=== PATIENT | male | born 1965 | race Caucasian/White ===

== ENCOUNTER 2023-02-14 01:32 | Outpatient (REF) | payer OTHER, SELFPAY ==
[2023-02-14 10:13] LABS: Basophils Absolute Auto 0.1 10^3/uL (0.0-0.1); Basophils Percent Auto 1.1 % (0.2-2.0); Eosinophils Absolute Auto 0.5 10^3/uL (0.0-0.7); Eosinophils Percent Auto 5.3 % (0.9-7.0); Hematocrit 39.9 % (42.0-54.0); Hemoglobin 13.1 g/dL (14.0-18.0); Immature Granulocytes Abs Auto 0.06 10^3/uL (0.00-0.03); Immature Granulocytes Pct Auto 0.6 % (0.0-0.5); Lymphocytes Absolute Auto 2.7 10^3/uL (1.2-3.8); Lymphocytes Percent Auto 28.6 % (20.5-60.0); Mean Corpuscular HGB Conc 32.8 g/dL (29.9-35.2); Mean Corpuscular Volume 88.3 fL (80.0-94.0); Mean Platelet Volume 11.4 fL (9.5-13.5); Monocytes Absolute Auto 0.5 10^3/uL (0.3-0.8); Monocytes Percent Auto 5.6 % (1.7-12.0); Neutrophils Absolute Auto 5.5 10^3/uL (1.4-6.5); Neutrophils Percent Auto 58.8 % (43.0-75.0); Platelet Count 222 10^3/uL (150-450); Red Blood Count 4.52 10^6/uL (4.70-6.10); Red Cell Distribution Width 13.9 % (11.0-15.0); White Blood Count 9.3 10^3/uL (4.0-11.0)
[2023-02-14 10:58] LABS: Anion Gap 14.1; Calcium 9.3 mg/dL (8.5-10.1); Carbon Dioxide 29.6 mmol/L (21.0-32.0); Chloride 100 mmol/L (98-107); Estimated GFR (African America >60 (>=60); Estimated GFR (Non-African Ame >60 (>=60); Glucose 239 mg/dL (74-106); Potassium 4.7 mmol/L (3.5-5.1); Sodium 139 mmol/L (136-145)
== END 2023-02-14 01:33 | disposition home or self-care (01) ==
LOC: LAB 01:32
PROVIDERS: PCP Family Medicine; Visit Provider Family Medicine
DX: Z01.812 Encounter for preprocedural laboratory examination (principal); I10 Essential (primary) hypertension; E11.9 Type 2 diabetes mellitus without complications; I48.91 Unspecified atrial fibrillation
CPT/HCPCS: 36415; 80048; 85025

== ENCOUNTER 2023-05-27 12:01 | Emergency (ER) | payer OTHER, MEDICAID, SELFPAY ==
[2023-05-27 12:08] VITALS: BP 122/77; PULSE 79; RESP 18; TEMP 36.5; O2SAT 94; BMI 37.3
--- NOTE | 2023-05-27 12:22 | ED.EAR1 ---
HPI - Ear Problem General Chief complaint: Ear Stated complaint: RIGHT EAR PAIN Time Seen by Provider: 05/27/23 12:22 Source: patient Mode of arrival: walk-in Limitations: no limitations History of Present Illness HPI Narrative: patient's here with aching in his right ear. He says he has some decreased hearing in that ear as well as his left ear. He says he saw an electric blanket packer in [place] last year and he had hearing loss present things as getting worse. He does not have any other [place] symptoms cough cold congestion or sore throat. No history of trauma. He is edentulous and gums his food no other complaints today. Related Data Allergies Allergy/AdvReac Type Severity Reaction Status Date / Time amoxicillin Allergy Mild Verified 05/27/23 12:07 penicillin G Allergy Mild Verified 05/27/23 12:07 PFS PFSH Social History Smoking status: Former smoker Exam Narrative Exam Narrative: awake alert normal vital signs appears in no discomfort whatsoever. Problem focused examination as noted below . Left tympanic membrane was well visualized there is tiny amount of wax in the canal that's asymptomatic. He has no tenderness over the left temporomandibular joint. Right ear shows completely normal eardrum with no erythema bulging or bullae. Tiny amount of wax in the external canal. He does have some tenderness palpation over the left she's been the right temporomandibular joint. Does not have a tenderness over the mastoid area. The external canal appears completely normal. His oral cavity is unremarkable except he has no teeth at all. His findings are consistent with right temporomandibular joint and chronic hearing loss. He is advised follow-up with audiology to further evaluate that and to be placed on oral NSAIDs Constitutional Vital Signs, click to edit/add: Last Vital Signs Temp 97.7 F 05/27/23 12:08 Pulse 79 05/27/23 12:08 Resp 18 05/27/23 12:08 BP 122/77 05/27/23 12:08 Pulse Ox 94 L 05/27/23 12:08 O2 Del Method Room Air 05/27/23 12:08 Course Vital Signs Vital signs: Vital Signs Temperature 97.7 F 05/27/23 12:08 Pulse Rate 79 05/27/23 12:08 Respiratory Rate 18 05/27/23 12:08 Blood Pressure 122/77 05/27/23 12:08 Pulse Oximetry 94 L 05/27/23 12:08 Oxygen Delivery Method Room Air 05/27/23 12:08 Temperature 97.7 F 05/27/23 12:08 Pulse Rate 79 05/27/23 12:08 Respiratory Rate 18 05/27/23 12:08 Blood Pressure 122/77 05/27/23 12:08 Pulse Oximetry 94 L 05/27/23 12:08 Oxygen Delivery Method Room Air 05/27/23 12:08 Discharge Plan Discharge Chief Complaint: Ear Clinical Impression: Right-sided temporomandibular joint pain-dysfunction syndrome Patient Disposition: Home, Self-Care Time of Disposition Decision: 12:24 Additional Instructions: may try [id number] NSAIDs or Anaprox. Follow-up with audiology in [place] to really evaluate your hearing loss Stand Alone Forms: Portal Instructions Referrals: KENDAL JONES [Primary Care Provider] - 1 week
--- NOTE | 2023-05-27 12:38 | PC.NURSE ---
Right ear irrigated with return of small amount of yellow wax
== END 2023-05-27 12:41 | disposition home or self-care (01) ==
PROVIDERS: Emergency Provider Emergency Medicine Emergency Medical Services; PCP Family Medicine
DX: M26.601 Right temporomandibular joint disorder, unspecified (principal); Z87.891 Personal history of nicotine dependence
CPT/HCPCS: 99281

== ENCOUNTER 2023-07-05 18:32 | Emergency (ER) | payer OTHER, MEDICAID, SELFPAY ==
[2023-07-05 18:35] VITALS: BP 130/82; PULSE 89; RESP 18; TEMP 36.6; O2SAT 95; BMI 37.5
--- NOTE | 2023-07-05 18:40 | ED_ITS ---
HPI - Ear Problem General Chief complaint: Ear Time Seen by Provider: 07/05/23 18:36 Source: patient Mode of arrival: ambulance Limitations: no limitations History of Present Illness HPI Narrative: 58-year-old male presents for left ear feeling plugged. He recently had his right ear plugged and then it was flushed out. Major fever or so throat and he doesn't have symptoms in the right ear. This started within the last day. Related Data Home Medications Medication Instructions Recorded Confirmed albuterol sulfate 90 mcg/actuation 2 inh inhalation Q6H PRN shortness 05/27/23 07/05/23 aerosol inhaler of breath or wheezing atorvastatin 20 mg tablet 20 mg PO DAILY 05/27/23 07/05/23 furosemide 40 mg tablet 40 mg PO BID 05/27/23 07/05/23 insulin aspart U-100 100 unit/mL 80 unit subcut BID 05/27/23 07/05/23 (3 mL) subcutaneous pen (Novolog FlexPen U-100 Insulin aspart) lisinopril 2.5 mg tablet 2.5 mg PO DAILY 05/27/23 07/05/23 metformin 500 mg tablet 500 mg PO BID 05/27/23 07/05/23 oxycodone-acetaminophen 5 mg-325 1 tab PO Q6H PRN pain 05/27/23 07/05/23 mg tablet rivaroxaban 20 mg tablet (Xarelto) 20 mg PO DAILY 05/27/23 07/05/23 sotalol 160 mg tablet 160 mg PO BID 05/27/23 07/05/23 docusate sodium 100 mg capsule mg PO 07/05/23 insulin glargine 100 unit/mL (3 unit subcut BID 07/05/23 mL) subcutaneous pen (Lantus Solostar U-100 Insulin) polyethylene glycol 3350 17 17 g PO DAILY 07/05/23 07/05/23 gram/dose oral powder tamsulosin 0.4 mg capsule 0.4 mg PO Q24H 07/05/23 07/05/23 tramadol 50 mg tablet mg 07/05/23 Allergies Allergy/AdvReac Type Severity Reaction Status Date / Time amoxicillin Allergy Mild Verified 05/27/23 12:07 penicillin G Allergy Mild Verified 05/27/23 12:07 Review of Systems ROS Narrative A ten point review of systems is negative except as noted above. PFSH PFSH Medical History (Updated 07/05/23 @ 19:01 by Farhan Hernandez MD) Amputation of finger, left ?S68.119A - Complete traumatic metacarpophalangeal amputation of unspecified finger, initial encounter (ICD-10) Atrial flutter ?I48.92 - Unspecified atrial flutter (ICD-10) Cervicalgia ?M54.2 - Cervicalgia (ICD-10) Cognitive communication deficit ?R41.841 - Cognitive communication deficit (ICD-10) Congestive heart failure ?I50.9 - Heart failure, unspecified (ICD-10) Diabetes ?E11.9 - Type 2 diabetes mellitus without complications (ICD-10) GERD (gastroesophageal reflux disease) ?K21.9 - Gastro-esophageal reflux disease without esophagitis (ICD-10) Hearing loss ?H91.90 - Unspecified hearing loss, unspecified ear (ICD-10) High cholesterol ?E78.00 - Pure hypercholesterolemia, unspecified (ICD-10) Hypertension ?I10 - Essential (primary) hypertension (ICD-10) Kidney failure ?N19 - Unspecified kidney failure (ICD-10) Nicotine dependence ?F17.200 - Nicotine dependence, unspecified, uncomplicated (ICD-10) Obesity ?E66.9 - Obesity, unspecified (ICD-10) Obstructive sleep apnea ?G47.33 - Obstructive sleep apnea (adult) (pediatric) (ICD-10) Osteomyelitis ?M86.9 - Osteomyelitis, unspecified (ICD-10) PVD (peripheral vascular disease) ?I73.9 - Peripheral vascular disease, unspecified (ICD-10) Spinal stenosis ?M48.00 - Spinal stenosis, site unspecified (ICD-10) TIA (transient ischemic attack) ?G45.9 - Transient cerebral ischemic attack, unspecified (ICD-10) Venous thromboembolism ?I82.90 - Acute embolism and thrombosis of unspecified vein (ICD-10) Social History Smoking status: Former smoker Exam Narrative Exam Narrative: Nurses note and vital signs reviewed and patient is not hypoxic. General: The patient appears well and in no apparent distress. Patient is resting comfortably on cart. Skin: Warm, dry, no pallor noted. There is no rash noted. Head: Normocephalic, atraumatic Eye: Normal conjunctiva, no drainage Ears, Nose, Mouth, and Throat: oral mucosa is moist. right tympanic membrane is normal in appearance as is the external canal. The left is obscured by large amount of cerumen. Cardiovascular: Regular Rate and Rhythm Respiratory: Patient is in no distress, no accessory muscle use, lungs are clear to auscultation, no wheezing, rales or rhonchi Back: non-tender GI: nontender Musculoskeletal: The patient has no evidence of calf tenderness, no pitting edema, symmetrical pulses noted bilaterally Neurological: $ Psychiatric: Cooperative Constitutional Vital Signs, click to edit/add: Last Vital Signs Temp 97.9 F 07/05/23 18:35 Pulse 89 07/05/23 18:35 Resp 18 07/05/23 18:35 BP 130/82 07/05/23 18:35 Pulse Ox 95 07/05/23 18:35 O2 Del Method Room Air 07/05/23 18:35 Course Vital Signs Vital signs: Vital Signs Temperature 97.9 F 07/05/23 18:35 Pulse Rate 89 07/05/23 18:35 Respiratory Rate 18 07/05/23 18:35 Blood Pressure 130/82 07/05/23 18:35 Pulse Oximetry 95 07/05/23 18:35 Oxygen Delivery Method Room Air 07/05/23 18:35 Temperature 97.9 F 07/05/23 18:35 Pulse Rate 89 07/05/23 18:35 Respiratory Rate 18 07/05/23 18:35 Blood Pressure 130/82 07/05/23 18:35 Pulse Oximetry 95 07/05/23 18:35 Oxygen Delivery Method Room Air 07/05/23 18:35 Medical Decision Making [facility] Narrative Medical decision making narrative: Irrigation is ordered and the patient is signed out to Dr. Umanzor. Differential Diagnosis Differential Diagnosis: otitis media, otitis externa, cerumen impaction Discharge Plan Discharge Chief Complaint: Ear Clinical Impression: Cerumen impaction Patient Disposition: Still a Patient Prescriptions / Home Meds: No Action albuterol sulfate 90 mcg/actuation HFA aerosol inhaler 2 inh INHALATION Q6H PRN (Reason: shortness of breath or wheezing) atorvastatin 20 mg tablet 20 mg PO DAILY furosemide 40 mg tablet 40 mg PO BID insulin aspart U-100 [Novolog FlexPen U-100 Insulin] 100 unit/mL (3 mL) insulin pen 80 unit SUBCUT BID Rx Instructions: sliding scale coverage lisinopril 2.5 mg tablet 2.5 mg PO DAILY metformin 500 mg tablet 500 mg PO BID Xarelto 20 mg tablet 20 mg PO DAILY sotalol 160 mg tablet 160 mg PO BID oxycodone-acetaminophen 5-325 mg tablet 1 tab PO Q6H PRN (Reason: pain) polyethylene glycol 3350 17 gram/dose powder 17 g PO DAILY tamsulosin 0.4 mg capsule 0.4 mg PO Q24H tramadol 50 mg tablet docusate sodium 100 mg capsule PO insulin glargine [Lantus Solostar U-100 Insulin] 100 unit/mL (3 mL) insulin pen SUBCUT BID Referrals: KENDAL JONES [Primary Care Provider] - 1 week
[2023-07-05] MEDS: DOXYCYCLINE MONOHYDRATE 100 MG CAPSULE PO (20:04)
--- NOTE | 2023-07-05 20:21 | PC.NURSE ---
Awaiting transport back to [facility]
--- NOTE | 2023-07-05 20:23 | PC.NURSE ---
Awaiting transport at this time.
== END 2023-07-05 20:40 | disposition home or self-care (01) ==
PROVIDERS: Emergency Provider Internal Medicine; PCP Family Medicine
DX: H66.92 Otitis media, unspecified, left ear (principal); H61.22 Impacted cerumen, left ear; I11.0 Hypertensive heart disease with heart failure; I50.9 Heart failure, unspecified; E11.9 Type 2 diabetes mellitus without complications; K21.9 Gastro-esophageal reflux disease without esophagitis; E78.00 Pure hypercholesterolemia, unspecified; E66.9 Obesity, unspecified; G47.33 Obstructive sleep apnea (adult) (pediatric); I73.9 Peripheral vascular disease, unspecified; Z86.73 Personal history of transient ischemic attack (TIA), and cerebral infarction without residual deficits; Z87.891 Personal history of nicotine dependence; Z79.899 Other long term (current) drug therapy; Z79.84 Long term (current) use of oral hypoglycemic drugs; Z79.4 Long term (current) use of insulin; Z89.022 Acquired absence of left finger(s); Z68.37 Body mass index [BMI] 37.0-37.9, adult
CPT/HCPCS: 69209; 99283

== ENCOUNTER 2023-07-16 01:41 | Outpatient (REF) | payer OTHER, MEDICAID, SELFPAY ==
[2023-07-17 08:13] LABS: PSA, Free 0.12 ng/mL; Prostate Specific Ag 0.2 ng/mL (0.0-4.0)
== END 2023-07-16 01:42 | disposition home or self-care (01) ==
LOC: LAB 01:41
PROVIDERS: PCP Family Medicine; Visit Provider Family Medicine
DX: N40.1 Benign prostatic hyperplasia with lower urinary tract symptoms (principal)
CPT/HCPCS: 36415; 84153; 84154